=== PATIENT | female | born 1970 | race Caucasian/White ===

== ENCOUNTER 2016-07-05 14:58 | Emergency (ER) | payer OTHER ==
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
[~2016-07-05 14:58] MED LIST: LEXAPRO PO; LIPITOR PO; LISINOPRIL10 MG PO; NAPROSYN-EC500 M1 PO; PROTONIX20 MG PO; ROBINUL FORTE2 MG; SINGULAIR PO; SYNTHROID; [UNRECOGNIZED DRUG - OTHER]; [UNRECOGNIZED DRUG - OTHER]
== END 2016-07-05 17:37 | disposition home or self-care (01) ==
LOC: SED 14:58
DX: S16.1XXA Strain of muscle, fascia and tendon at neck level, initial encounter (principal); S46.912A Strain of unspecified muscle, fascia and tendon at shoulder and upper arm level, left arm, initial encounter; Z79.899 Other long term (current) drug therapy; V49.40XA Driver injured in collision with unspecified motor vehicles in traffic accident, initial encounter; Y92.488 Other paved roadways as the place of occurrence of the external cause
CPT/HCPCS: 72040; 72125; 73030; 99284